=== PATIENT | female | born 1995 | race African-American/Black ===

== ENCOUNTER 2017-12-10 21:04 | Emergency (ER) | payer OTHER ==
[2017-12-10 22:41] VITALS: BP 107/64
--- NOTE | 2017-12-17 19:55 | ED ---
Rasta Mccollum Rebecca, scribed for Cisco Rubalcava MD on 12/10/17 at 2200 . Skin Complaint - HPI Summary HPI Summary: Pt is a 22 y/o F who presents to ED c/o diffuse pruritic rash. Pt reports she sat on a couch in the "movie room" at her job about 1.5 weeks ago and a few days later, she began "breaking out" in the rash. Pt states that the new regions of rash are erythematous. Denies any drainage. Pt has bumps on the bilateral UE and LE, back, chest, R shoulder, R side of the neck, bilateral sides. Denies any lesions in the axillary regions or groin. Pt denies any pain, ranking it as 0/10. States that her cousin had a similar reaction and that she was diagnosed with scabies. No chance of . NKDA. - History of Current Complaint Chief Complaint: EDRashSkinAbscess Time Seen by Provider: 12/10/17 21:59 Stated Complaint: RASH Hx Obtained From: Patient Onset/Duration: Started Weeks Ago - 1 week, Still Present Current Severity: None Pain Intensity: 0 Pain Scale Used: 0-10 Numeric Skin Location: Diffuse Character: Pruritus, Redness Aggravating Symptom(s): Nothing Alleviating Symptom(s): Nothing - Allergy/Home Medications Allergies/Adverse Reactions: Allergies Allergy/AdvReac Type Severity Reaction Status Date / Time No Known Allergies Allergy Verified 12/16/14 21:03 PMH/Surg Hx/FS Hx/Imm Hx Endocrine/Hematology History: Denies: Hx Diabetes, Hx Thyroid Disease Cardiovascular History: Denies: Hx Hypertension Respiratory History: Denies: Hx Asthma, Hx Chronic Obstructive Pulmonary Disease (COPD) GI History: Denies: Hx Ulcer Infectious Disease History: No Infectious Disease History: Denies: Hx Clostridium Difficile, Hx Hepatitis, Hx Human Immunodeficiency Virus (HIV), Hx of Known/Suspected MRSA, Hx Shingles, Hx Tuberculosis, Hx Known/ Suspected VRE, Hx Known/Suspected VRSA, History Other Infectious Disease, Traveled Outside the [place] in Last 30 Days - Family History Known Family History: Positive: Other - Scabies (cousin) - Social History Alcohol Use: None Substance Use Type: Reports: None Smoking Status (MU): Never Smoked Tobacco Review of Systems Negative: Fever Positive: Rash - Diffuse pruritis, erythematous rash All Other Systems Reviewed And Are Negative: Yes Physical Exam - Summary Physical Exam Summary: Appearance: Well-appearing, Well-nourished Skin: Warm, Dry, Diffuse macular rash on the arms, chest (mostly anterior) and the upper legs with no pairing, no vesicles. Nothing between the fingers, in the axilla or groin. Eyes: Normal, PERRL, EOMI, sclera anicteric ENT: Normal Neck: Supple, nontender Respiratory: Clear to auscultation Cardiovascular: S1, S2, no murmur, no rub, no gallop Abdomen: Soft, nontender, no organomegaly Bowel sounds: Present Musculoskeletal: Normal, Strength/ROM Intact, no edema, pulses symmetrical Neurological: Normal, A&Ox3, cranial nerves II-XII WNL, follows commands, gait not tested, sensation intact to pin and light touch Psychiatric: affect normal, behavior appropriate, dressed appropriately, judgment intact Triage Information Reviewed: Yes Vital Signs On Initial Exam: Initial Vitals Temp Pulse Resp BP Pulse Ox 97.9 F 83 16 123/73 99 12/10/17 21:06 12/10/17 21:06 12/10/17 21:06 12/10/17 21:06 12/10/17 21:06 Vital Signs Reviewed: Yes Diagnostics - Vital Signs Vital Signs Temp Pulse Resp BP Pulse Ox 12/10/17 21:06 97.9 F 83 16 123/73 99 - Laboratory Lab Statement: Any lab studies that have been ordered have been reviewed, and results considered in the medical decision making process. Course/Dx - Course Assessment/Plan: Pt is a 22 y/o F who presents to ED c/o diffuse pruritic rash. Pt reports she sat on a couch in the "movie room" at her job about 1.5 weeks ago and a few days later, she began "breaking out" in the rash. Pt states that the new regions of rash are erythematous. Denies any drainage. Pt has bumps on the bilateral UE and LE, back, chest, R shoulder, R side of the neck, bilateral sides. Denies any lesions in the axillary regions or groin. Pt denies any pain, ranking it as 0/10. States that her cousin had a similar reaction and that she was diagnosed with scabies. No chance of . NKDA. Pt will be D/C to home with Dx of bed bugs. She understands and agrees. - Diagnoses Provider Diagnoses: Bed bug bite Discharge - Discharge Plan Condition: Good Disposition: HOME Prescriptions: Fluocinonide 0.05% CM(NF) [Lidex 0.05% CREAM(NF)] 1 applic TOPICAL DAILY 10 Days #1 tube Patient Education Materials: Bed Bugs (ED) Referrals: No Primary Care Phys,NOPCP [Primary Care Provider] - Additional Instructions: wash bedclothes, bedding, have furniture cleaned, with pesticide service The documentation as recorded by the Rasta [place] Rebecca accurately reflects the service I personally performed and the decisions made by me, Cisco Rubalcava MD.
== END 2017-12-10 22:42 | disposition home or self-care (01) ==
LOC: ED 21:04
DX: T14.8XXA Other injury of unspecified body region, initial encounter (principal); W57.XXXA Bitten or stung by nonvenomous insect and other nonvenomous arthropods, initial encounter; Y92.9 Unspecified place or not applicable
CPT/HCPCS: 99282